=== PATIENT | male | born 1935 | race Caucasian/White ===

== ENCOUNTER 2017-05-30 07:19 | Observation (INO) | payer OTHER ==
[2017-05-30] VITALS (7 sets, daily range): BP systolic 140–151; BP diastolic 64–70; PULSE 40–49; RESP 20; TEMP 97.6; Ht 165.1 cm; Wt 74.4 kg
[~2017-05-30] VITALS: Ht 165.1 cm; Wt 74.4 kg
[~2017-05-30 07:19] MED LIST: ACET325T33 PO; AMLO-145 PO; ATOR20TA65 PO; DORZ10DR BOTH EYES; DOXA1TAB PO; ESOM40CA PO; HYDR-3498 PO; HYDR12.58 PO; KETO5DRO21 BOTH EYES; MAGN400O4 PO; PRD1OP5 BOTH EYES; TIMO5DRO30 BOTH EYES
[2017-05-30] MEDS ORDERED: morphine 4 MG/ML VIAL IV STA (08:05)
[2017-05-30] MEDS ORDERED: ONDANSETRON 4 MG INJ IV STA (08:05)
[2017-05-30] MEDS ORDERED: ASPIRIN 325 MG TAB PO STA (08:05)
[2017-05-30 08:28] LABS: BASOPHILS % 0.3 % (0.0-2.0); EOSINOPHILS # 0.1 10^3/ul (0.0-0.5); EOSINOPHILS % 1.4 % (0.0-7.0); HEMATOCRIT 39.3 % (42.0-52.0); HEMOGLOBIN 13.3 g/dl (14.0-18.0); LYMPHOCYTES % 28.4 % (15.0-51.0); MEAN CORPUSCULAR HEMOGLOBIN 32.8 pg (29.0-33.0); MEAN CORPUSCULAR HGB CONC 33.8 g/dl (32.0-37.0); MEAN CORPUSCULAR VOLUME 96.8 fl (82.0-101.0); MEAN PLATELET VOLUME 10.2 fl (7.4-10.4); MONOCYTE # 0.3 10^3/ul (0.3-0.9); MONOCYTES % 7.7 % (0.0-11.0); NEUTROPHIL # 2.2 10^3/ul (1.6-7.5); NEUTROPHILS % 61.9 % (39.0-77.0); PLATELET COUNT 119 10^3/UL (140-415); RED BLOOD COUNT 4.06 10^6/ul (4.70-6.10); RED CELL DISTRIBUTION WIDTH 12.8 % (11.5-14.5); WHITE BLOOD COUNT 3.5 10^3/ul (4.8-10.8)
[2017-05-30 08:43] LABS: INR 0.98; PARTIAL THROMBOPLASTIN TIME 26.8 Sec (25.0-35.0); PROTIME 13.1 Sec (11.9-14.9)
--- NOTE | 2017-05-30 08:45 | ERD ---
ER Documentation Chief Complaint Chief Complaint CHEST PAIN SINCE MONDAY HPI This is an 81-year-old male with a history of hypertension high cholesterol complains of substernal chest pain for 2 days. The pain is off and on described as a chest pressure with no radiation. He says he has no shortness of breath no nausea vomiting no palpitations. He says it does not happen when he walks. Patient has a history of CABG in the past. Patient is a very poor historian. Currently. He says his chest pain is very mild ROS All systems reviewed and are negative except as per history of present illness. Medications Home Meds Active Scripts Atorvastatin Calcium (Atorvastatin Calcium) 20 Mg Tablet, 20 MG PO HS, #30 TAB Prov:CHARLOTTE MARQUIS MD 02/06/16 Reported Medications Aspirin* (Aspirin* EC) 81 Mg Tablet., 81 MG PO DAILY, TAB 05/30/17 Prednisolone Acetate* (Pred Forte*) 5 Ml Susp, 1 DROP BOTH EYES QID, EA 02/04/16 Hydrochlorothiazide* (Hydrochlorothiazide*) 12.5 Mg Tablet, 12.5 MG PO DAILY, # 30 TAB 02/04/16 Doxazosin Mesylate* (Doxazosin Mesylate*) 1 Mg Tablet, 1 MG PO HS, TAB 02/04/16 Timolol Maleate* (Timoptic*) 0.5%-5ml Opht, 1 DROP BOTH EYES BID, #1 EA 02/04/16 Dorzolamide Hcl* (Dorzolamide Hcl*) 10 Ml Drops, 1 DROP BOTH EYES TID, #1 EA 02/04/16 Esomeprazole Mag Trihydrate (Nexium) 40 Mg Capsule.dr, 40 MG PO DAILY, CAP 01/27/15 Discontinued Reported Medications Ketorolac Tromethamine Oph (Ketorolac Tromethamine Oph) 0.5%-5 Ml Opht Drops, 1 DROP BOTH EYES QID, EA 02/04/16 Amlodipine Besylate* (Amlodipine Besylate*) 5 Mg Tablet, 5 MG PO DAILY, TAB 01/27/15 Discontinued Scripts Hydrocodone Bit-Acetaminophen (Hydrocodone Bit-APAP) 5-325MG Tablet, 1 TAB PO Q6H Y for PAIN LEVEL 4-6, #60 TAB Prov:CHARLOTTE MARQUIS MD 02/06/16 Magnesium Hydroxide* (Milk Of Magnesia*) 400 Mg/5 Ml Oral.susp, 30 ML PO BID for CONSTIPATION, #1 BOTTLE Prov:CHARLOTTE MARQUIS MD 02/06/16 Acetaminophen* (Tylenol*) 325 Mg Tablet, 650 MG PO Q6H Y for PAIN LEVEL 1-3 OR FEVER, #60 TAB Prov:CHARLOTTE MARQUIS MD 02/06/16 Allergies Allergies: Coded Allergies: No Known Allergy (Unverified , 02/04/16) PMhx/Soc History of Surgery: Yes (Open heart, GALLBLADDER SURGERY) Anesthesia Reaction: No Hx Neurological Disorder: No Hx Respiratory Disorders: No Hx Cardiac Disorders: Yes (TN, HTN) Hx Psychiatric Problems: No Hx Miscellaneous Medical Probl: Yes (HIGH CHOLESTEROL) Hx Alcohol Use: No Hx Substance Use: No Hx Tobacco Use: Yes Smoking Status: Light tobacco smoker FmHx Family History: No coronary disease Physical Exam Vitals Vital Signs Date Time Temp Pulse Resp B/P Pulse Ox O2 Delivery O2 Flow Rate FiO2 05/30/17 08:33 97.6 46 20 142/64 96 Nasal Cannula 2.0 05/30/17 08:33 Nasal Cannula 2 05/30/17 07:21 97.8 52 16 190/83 100 Physical Exam Const: Well-developed, well-nourished Head: Atraumatic, normocephalic Eyes: Normal Conjunctiva, PERRLA, EOMI, normal sclera, no nystagmus ENT: Normal External Ears, Nose and Mouth, moist mucus membranes. Neck: Full range of motion. No meningismus, no lymphadenopathy. Resp: Clear to auscultation bilaterally, no wheezing, rhonchi, rales Cardio: Bradycardia, no murmurs, S1 S2 present Abd: Soft, non tender x 4, non distended. Normal bowel sounds, no guarding or rebound, no pulsitile abdominal masses or bruits Skin: No petechiae or rashes, no ecchymosis , no maculopapular rash Back: No midline or flank tenderness Ext: No cyanosis, or edema, FROM x 4, normal inspection, neurovascularly intact x 4 Neur: Awake and alert, STR 5/5 x 4, sensation intact x 4, no focal findings, cerebellum intact Psych: Normal Mood and Affect Result Diagram: 05/30/17 0800 05/30/17 0800 Results 24 hrs Laboratory Tests Test 05/30/17 08:00 White Blood Count 3.510^3/ul Red Blood Count 4.0610^6/ul Hemoglobin 13.3g/dl Hematocrit 39.3% Mean Corpuscular Volume 96.8fl Mean Corpuscular Hemoglobin 32.8pg Mean Corpuscular Hemoglobin Concent 33.8g/dl Red Cell Distribution Width 12.8% Platelet Count 50621^3/UL Mean Platelet Volume 10.2fl Neutrophils % 61.9% Lymphocytes % 28.4% Monocytes % 7.7% Eosinophils % 1.4% Basophils % 0.3% Nucleated Red Blood Cells % 0.0/100WBC Neutrophils # 2.210^3/ul Lymphocytes # 1.010^3/ul Monocytes # 0.310^3/ul Eosinophils # 0.110^3/ul Basophils # 0.010^3/ul Nucleated Red Blood Cells # 0.010^3/ul Prothrombin Time 13.1Sec Prothrombin Time Ratio 1.0 INR International Normalized Ratio 0.98 Activated Partial Thromboplast Time 26.8Sec Sodium Level 141mmol/L Potassium Level 3.9mmol/L Chloride Level 107mmol/L Carbon Dioxide Level 24mmol/L Anion Gap 14 Blood Urea Nitrogen 18mg/dl Creatinine 0.93mg/dl Glucose Level 123mg/dl Calcium Level 8.8mg/dl Total Bilirubin 0.6mg/dl Direct Bilirubin 0.00mg/dl Indirect Bilirubin 0.6mg/dl Aspartate Amino Transf (AST/SGOT) 25IU/L Alanine Aminotransferase (ALT/SGPT) 39IU/L Alkaline Phosphatase 80IU/L Troponin I 0.046ng/ml Total Protein 6.9g/dl Albumin 3.6g/dl Globulin 3.30g/dl Albumin/Globulin Ratio 1.09 Current Medications Medications (Trade) Dose Ordered Sig/Se Route PRN Reason Start Time Stop Time Status Last Admin Dose Admin Aspirin (Aspirin) 325 mg ONCE STAT PO 05/30/17 08:05 05/30/17 08:06 DC 05/30/17 08:20 Morphine Sulfate (morphine) 4 mg ONCE STAT IV 05/30/17 08:05 05/30/17 08:06 DC 05/30/17 08:20 Ondansetron HCl (Zofran Inj) 4 mg ONCE STAT IV 05/30/17 08:05 05/30/17 08:06 DC 05/30/17 08:20 Procedures/MDM EKG: Rate/Rhythm: Sinus bradycardia heart rate 52 with first-degree AV block and nonspecific ST changes QRS, ST, QT: NORMAL MO, QRS, QT] Impression: Abnormal EKG PROCEDURE: XR Chest. CLINICAL INDICATION: Chest pain. TECHNIQUE: Single frontal view. COMPARISON: 02/04/2016. FINDINGS: The lungs are clear. The heart size is normal. There is calcification in the aorta consistent with atherosclerosis. There are sternal wires and mediastinal clips. There is no pleural effusion. There is no pneumothorax. IMPRESSION: 1. Atherosclerosis. 2. Previous median sternotomy. 3. Clear lungs. 4. Otherwise unremarkable chest radiograph. RPTAT: QQ .Tomasz Carrera MD, MD Date Time Electronically viewed and signed by .Tomasz Carrera MD, MD on 05/30/2017 08:44 .R/ CC: GENI ABRAMS DO Patient's symptoms are concerning for cardiac cause will require inpatient workup and continuous monitoring. Further w/u for ischemia, arrhythmia, PE or dissection will be deferred to the inpatient team. Accepting Care Team: Current data and ongoing care discussed. Time: Time of admission Primary Provider: [XOXOXO] Consulting: [XOXOXO] Outstanding Data: none Departure Diagnosis: Primary Impression: Chest pain Chest pain type: unspecified Qualified Code: R07.9 - Chest pain, unspecified type Condition: Stable GENI ABRAMS DO May 30, 2017 08:45
[2017-05-30 08:47] LABS: ALBUMIN 3.6 g/dl (3.3-4.9); ALBUMIN/GLOBULIN RATIO 1.09; BILIRUBIN,INDIRECT 0.6 mg/dl (0-1.1); BILIRUBIN,TOTAL 0.6 mg/dl (0.2-1.3); CALCIUM 8.8 mg/dl (8.4-10.2); CREATININE 0.93 mg/dl (0.61-1.24); POTASSIUM 3.9 mmol/L (3.5-5.1); TOTAL PROTEIN 6.9 g/dl (6.1-8.1)
[2017-05-30 08:58] LABS: TROPONIN-I 0.046 ng/ml (0.00-0.12)
[2017-05-30] MEDS ORDERED: ASPI-664 PO (09:19)
[2017-05-30] MEDS ORDERED: LOSA25TA5 PO (09:34)
[2017-05-30] MEDS ORDERED: METO-335 PO (09:34)
[2017-05-30] MEDS ORDERED: ATOR40TA68 PO (09:35)
[2017-05-30] MEDS ORDERED: SOD CHLORIDE 0.9% 1,000 ML IV SCH (10:56)
[2017-05-30] MEDS ORDERED: ONDANSETRON 4 MG INJ IV PRN (11:00)
[2017-05-30] MEDS ORDERED: ACETAMINOPHEN 325 MG TAB PO PRN (11:00)
--- NOTE | 2017-05-30 12:57 | HP ---
Date/Time of Note Date/Time of Note DATE: 05/30/17 TIME: 12:51 Assessment/Plan VTE Prophylaxis VTE Prophylaxis Intervention: LMWH Lines/Catheters IV Catheter Type (from Nrs): Saline Lock Assessment/Plan Assessment/Plan 81 yo M with 4 day hx of chest pain managed as follows: 1. Chest pain r/o ACS 2 Sinus Bradycardia likely 2/2 meds 3. History of coronary artery disease status post CABG 4. Hypertension with suboptimal control on arrival 5. History of dyslipidemia 6. Chronic glaucoma stable Plan: Telemetry admission, trend cardiac enzymes, 2d echo if none recently and possible cardiology consult for stress test. oxygen and nitroglycerin therapy as needed. Daily aspirin if no allergy or bleeding risk. Get lipid profile, magnesium and TSH levels in am. HPI/ROS Admit Date/Time Admit Date/Time May 30, 2017 Hx of Present Illness This is an 81-year-old male who presents to the emergency room today because of Substernal chest pain that has been on and off for the last 2-3 days. Pain is said to be more like a pressure-like sensation. Of note is that patient is not very able to give a detailed history. Apparently has had a history of CABG in the past. He is currently chest pain-free. He is being admitted for chest pain workup. ROS 12 point review if systems was done and pertinent findings are as noted. PMH/Family/Social Past Medical History 1. Hypertension 2. Dyslipidemia 3. CAD Status post CABG in the past 4. Glaucoma . Past Surgical History * CABG Past Surgical Hx: coronary bypass surgery, endoscopy, other Family History Significant Family History: no pertinent family hx Social History Alcohol Use: none Smoking Status: Light tobacco smoker Drug Use: none Exam/Review of Systems Vital Signs Vitals VS - Last 72 Hours, by Label Date Time Temp Pulse Resp B/P Pulse Ox O2 Delivery O2 Flow Rate FiO2 05/30/17 12:31 97.6 39 18 135/86 98 Nasal Cannula 2.0 05/30/17 08:33 97.6 46 20 142/64 96 Nasal Cannula 2.0 05/30/17 08:33 Nasal Cannula 2 05/30/17 07:21 97.8 52 16 190/83 100 Vital Signs Date Time Temp Pulse Resp B/P Pulse Ox O2 Delivery O2 Flow Rate FiO2 05/30/17 12:31 97.6 39 18 135/86 98 Nasal Cannula 2.0 Exam Exam Constitutional: alert, oriented Head: atraumatic, normocephalic Neck: non-tender, supple Respiratory: clear to auscultation Cardiovascular: regular rate and rhythm Gastrointestinal: S/ NT / ND / +BS Extremities: no edema, good radial pulses Labs Result Diagram: 05/30/17 0800 05/30/17 0800 Medications Medications Current Medications Sodium Chloride (NS) 1,000 ml @ 80 mls/hr [id number] IV ; Start 05/30/17 at 10:56 ; Stop 05/30/17 at 23:25 Procedures Procedures Laboratory Tests Test 05/30/17 08:00 White Blood Count 3.510^3/ul Red Blood Count 4.0610^6/ul Hemoglobin 13.3g/dl Hematocrit 39.3% Mean Corpuscular Volume 96.8fl Mean Corpuscular Hemoglobin 32.8pg Mean Corpuscular Hemoglobin Concent 33.8g/dl Red Cell Distribution Width 12.8% Platelet Count 97053^3/UL Mean Platelet Volume 10.2fl Neutrophils % 61.9% Lymphocytes % 28.4% Monocytes % 7.7% Eosinophils % 1.4% Basophils % 0.3% Nucleated Red Blood Cells % 0.0/100WBC Neutrophils # 2.210^3/ul Lymphocytes # 1.010^3/ul Monocytes # 0.310^3/ul Eosinophils # 0.110^3/ul Basophils # 0.010^3/ul Nucleated Red Blood Cells # 0.010^3/ul Prothrombin Time 13.1Sec Prothrombin Time Ratio 1.0 INR International Normalized Ratio 0.98 Activated Partial Thromboplast Time 26.8Sec Sodium Level 141mmol/L Potassium Level 3.9mmol/L Chloride Level 107mmol/L Carbon Dioxide Level 24mmol/L Anion Gap 14 Blood Urea Nitrogen 18mg/dl Creatinine 0.93mg/dl Glucose Level 123mg/dl Calcium Level 8.8mg/dl Total Bilirubin 0.6mg/dl Direct Bilirubin 0.00mg/dl Indirect Bilirubin 0.6mg/dl Aspartate Amino Transf (AST/SGOT) 25IU/L Alanine Aminotransferase (ALT/SGPT) 39IU/L Alkaline Phosphatase 80IU/L Troponin I 0.046ng/ml Total Protein 6.9g/dl Albumin 3.6g/dl Globulin 3.30g/dl Albumin/Globulin Ratio 1.09 Current Medications Medications (Trade) Dose Ordered Sig/Se Route PRN Reason Start Time Stop Time Status Last Admin Dose Admin Aspirin (Aspirin) 325 mg ONCE STAT PO 05/30/17 08:05 05/30/17 08:06 DC 05/30/17 08:20 325 MG Morphine Sulfate (morphine) 4 mg ONCE STAT IV 05/30/17 08:05 05/30/17 08:06 DC 05/30/17 08:20 4 MG Ondansetron HCl 4 mg 4 mg ONCE STAT IV 05/30/17 08:05 05/30/17 08:06 DC 05/30/17 08:20 4 MG Sodium Chloride (NS) 1,000 ml @ 80 mls/hr [id number] IV 05/30/17 10:56 05/30/17 23:25 Ondansetron HCl (Zofran Inj) 4 mg ER BRIDGE PRN IV NAUSEA AND/OR VOMITING 05/30/17 11:00 05/31/17 10:59 Acetaminophen (Tylenol Tab) 650 mg ER BRIDGE PRN PO MILD PAIN/FEVER 05/30/17 11:00 05/31/17 10:59 PROCEDURE: XR Chest. CLINICAL INDICATION: Chest pain. TECHNIQUE: Single frontal view. COMPARISON: 02/04/2016. FINDINGS: The lungs are clear. The heart size is normal. There is calcification in the aorta consistent with atherosclerosis. There are sternal wires and mediastinal clips. There is no pleural effusion. There is no pneumothorax. IMPRESSION: 1. Atherosclerosis. 2. Previous median sternotomy. 3. Clear lungs. 4. Otherwise unremarkable chest radiograph. RPTAT: QQ .Tomasz Carrera MD, MD Date Time Electronically viewed and signed by .Tomasz Carrera MD, MD on 05/30/2017 08:44 .R/ CC: GENI ABRAMS DO I reviewed EKG Rate: 52 Rhythm: sinus blair with 1st deg AV block Note: No ST elevation or depressions noted concerning for acute ischemic event. MELY SCHULTZ May 30, 2017 12:56
[2017-05-30] MEDS: PREDNISOLONE ACET 1% 5 ML OPH BOTH EYES SCH ×3 (14:28→21:00)
[2017-05-30] MEDS: DORZOLAMIDE 2% 10 ML OPH BOTH EYES SCH ×2 (14:28→21:00)
[2017-05-30 15:47] LABS: MAGNESIUM 1.8 mg/dl (1.7-2.5); PHOSPHORUS 3.1 mg/dl (2.5-4.9)
[2017-05-30 15:57] LABS: TROPONIN-I 0.028 ng/ml (0.00-0.12)
[2017-05-30 16:06] LABS: CK-MB 0.8 ng/ml (0.0-2.4)
--- NOTE | 2017-05-30 18:41 | CONS ---
Date/Time of Note Date/Time of Note DATE: 05/30/17 TIME: 18:37 Assessment/Plan Assessment/Plan Chief Complaint/Hosp Course 1) Atypical chest pain 2) marked sinus bradycardia suggestive of SSS without syncope 3) HTN 4) HLP 5) h/o preserved LV function 6) CABG Problems: Additional Assessment/Plan 1) Avoid av haleigh blockers 2) troponins 3) EKG 4) echo 5) will consider stress testing however chest pain may be caused by marked sinusbrady seconday to beta jarret Consultation Date/Type/Reason Admit Date/Time May 30, 2017 Date of Consultation: May 30, 2017 Type of Consultation: cv Hx of Present Illness admitted with chest pain, mid chest, no radiation, localized, not exertional, now resolved, currently no symtoms, no chest pain, no sob, no palpitations, no dizziness or syncope or near syncope, found to have sinusbrady in the 30s ENT: no complaints Respiratory: no complaints Cardiovascular: no complaints Gastrointestinal: no complaints Musculoskeletal: no complaints Skin: no complaints Neurologic: no complaints Endocrine: no complaints Past Medical History Medical History: coronary artery disease, high cholesterol, hypertension Past Surgical History Past Surgical Hx: coronary bypass surgery, endoscopy, other Family History Significant Family History: hypertension Social History Alcohol Use: none Smoking Status: Light tobacco smoker Drug Use: none Exam/Review of Systems Vital Signs Vitals Vital Signs Date Time Temp Pulse Resp B/P Pulse Ox O2 Delivery O2 Flow Rate FiO2 05/30/17 16:00 45 05/30/17 15:07 97.7 140/64 98 Nasal Cannula 2.0 05/30/17 12:31 18 Exam Constitutional: alert, oriented Head: atraumatic, normocephalic Neck: supple Respiratory: clear to auscultation Cardiovascular: regular rate and rhythm Gastrointestinal: soft Musculoskeletal: nl extremities to inspection Extremities: normal pulses Results Result Diagram: 05/30/17 0800 05/30/17 0800 Results 24 hrs Laboratory Tests Test 05/30/17 08:00 05/30/17 15:14 White Blood Count 3.5 #L Red Blood Count 4.06 L Hemoglobin 13.3 L Hematocrit 39.3 L Mean Corpuscular Volume 96.8 Mean Corpuscular Hemoglobin 32.8 Mean Corpuscular Hemoglobin Concent 33.8 Red Cell Distribution Width 12.8 Platelet Count 119 L Mean Platelet Volume 10.2 # Neutrophils % 61.9 Lymphocytes % 28.4 Monocytes % 7.7 Eosinophils % 1.4 Basophils % 0.3 Nucleated Red Blood Cells % 0.0 Neutrophils # 2.2 Lymphocytes # 1.0 Monocytes # 0.3 Eosinophils # 0.1 Basophils # 0.0 Nucleated Red Blood Cells # 0.0 Prothrombin Time 13.1 Prothrombin Time Ratio 1.0 INR International Normalized Ratio 0.98 Activated Partial Thromboplast Time 26.8 Sodium Level 141 Potassium Level 3.9 Chloride Level 107 Carbon Dioxide Level 24 Anion Gap 14 Blood Urea Nitrogen 18 Creatinine 0.93 Glucose Level 123 Calcium Level 8.8 Total Bilirubin 0.6 Direct Bilirubin 0.00 Indirect Bilirubin 0.6 Aspartate Amino Transf (AST/SGOT) 25 Alanine Aminotransferase (ALT/SGPT) 39 Alkaline Phosphatase 80 Troponin I 0.046 0.028 Total Protein 6.9 Albumin 3.6 Globulin 3.30 H Albumin/Globulin Ratio 1.09 Phosphorus Level 3.1 Magnesium Level 1.8 Creatine Kinase 51 Creatine Kinase Index 1.6 Creatinine Kinase MB (Mass) 0.80 Medications Medications Current Medications Sodium Chloride (NS) 1,000 ml @ 80 mls/hr [id number] IV ; Start 05/30/17 at 10:56 ; Stop 05/30/17 at 23:25 Aspirin (Halfprin) 81 mg DAILY PO ; Start 05/31/17 at 09:00 Atorvastatin Calcium (Lipitor) 40 mg QHS PO ; Start 05/30/17 at 21:00 Dorzolamide HCl (Trusopt) 1 drop TID BOTH EYES Last administered on 05/30/17t 14:28; Admin Dose 1 DROP; Start 05/30/17 at 13:00 Doxazosin Mesylate (Cardura) 1 mg HS PO ; Start 05/30/17 at 21:00 Hydrochlorothiazide (Hydrochlorothiazide) 12.5 mg DAILY PO ; Start 05/31/17 at 09:00 Losartan Potassium (Cozaar) 25 mg DAILY PO ; Start 05/31/17 at 09:00 Prednisolone Acetate (Pred-Forte 1%) 1 drop QID BOTH EYES Last administered on 05/30/17t 17:47; Admin Dose 1 DROP; Start 05/30/17 at 13:00 Timolol Maleate (Timoptic 0.5%) 1 drop BID BOTH EYES ; Start 05/30/17 at 21:00 Pantoprazole (Protonix Tab) 40 mg DAILY PO ; Start 05/31/17 at 09:00 RACQUEL MCGREGOR MD May 30, 2017 18:41
[2017-05-30 20:34] LABS: TROPONIN-I 0.046 ng/ml (0.00-0.12)
[2017-05-30 20:35] LABS: CK-MB 0.88 ng/ml (0.0-2.4)
[2017-05-30] MEDS ORDERED: ATORVASTATIN 40 MG TAB PO SCH (21:00)
[2017-05-30] MEDS ORDERED: DOXAZOSIN 1 MG TAB PO SCH (21:00)
[2017-05-30] MEDS: TIMOLOL 0.5% 5 ML OPH BOTH EYES SCH (21:17)
[2017-05-31] VITALS (7 sets, daily range): BP systolic 136–168; BP diastolic 61–77; PULSE 40–45; RESP 16–19
[2017-05-31] MEDS ORDERED: GLUCAGON 1 MG INJ IV ONE (04:00)
--- NOTE | 2017-05-31 07:22 | RADRPT ---
Vent Rate: 40 bpm RR Interval: 0 msec MA Interval: 250 msec QRS Duration: 78 msec QT Interval: 464 msec QTC Interval: 378 msec P-R-T [place]: 47 - 32 - 52 degrees Marked sinus bradycardia with sinus arrhythmia with 1st degree AV block Nonspecific T wave abnormality Abnormal ECG Electronically Signed By: Puneet Gutiérrez [id number]
[2017-05-31] MEDS: TIMOLOL 0.5% 5 ML OPH BOTH EYES SCH (09:00)
[2017-05-31] MEDS: PREDNISOLONE ACET 1% 5 ML OPH BOTH EYES SCH ×2 (09:00→13:23)
[2017-05-31] MEDS: DORZOLAMIDE 2% 10 ML OPH BOTH EYES SCH ×2 (09:00→13:23)
[2017-05-31] MEDS ORDERED: LOSARTAN 25 MG TAB PO SCH (09:00)
[2017-05-31] MEDS ORDERED: HYDROCHLOROTHIAZIDE 12.5 MG CAP PO SCH (09:00)
[2017-05-31] MEDS ORDERED: ASPIRIN (EC) 81 MG TAB PO SCH (09:00)
[2017-05-31] MEDS ORDERED: PANTOPRAZOLE (EC) 40 MG TAB PO SCH (09:00)
--- NOTE | 2017-05-31 09:01 | PN ---
Date/Time of Note Date/Time of Note DATE: 05/31/17 TIME: 08:57 Assessment/Plan VTE Prophylaxis VTE Prophylaxis Intervention: LMWH Lines/Catheters IV Catheter Type (from Nrs): Saline Lock Urinary Cath still in place: No Assessment/Plan Assessment/Plan 81 yo M with 4 day hx of chest pain managed as follows: 1. Chest pain ACS has been ruled out 2 Sinus Bradycardia likely 2/2 meds r/o SSS 3. History of coronary artery disease status post CABG 4. Hypertension with improving 5. History of dyslipidemia 6. Chronic glaucoma stable Plan: Continue current care and await cardiology recs Subjective 24 Hr Interval Summary Constitutional: no complaints Exam/Review of Systems Vital Signs Vitals Vital Signs Date Time Temp Pulse Resp B/P Pulse Ox O2 Delivery O2 Flow Rate FiO2 05/31/17 08:02 41 05/31/17 07:55 98.0 16 136/61 96 05/30/17 15:07 Nasal Cannula 2.0 Intake and Output 05/30/17 05/30/17 05/31/17 15:00 23:00 07:00 Intake Total 240 ml Balance 240 ml Exam Constitutional: alert, oriented Head: atraumatic, normocephalic Neck: non-tender, supple Respiratory: clear to auscultation Cardiovascular: regular rate and rhythm Gastrointestinal: S/ NT / ND / +BS Extremities: no edema, good radial pulses Results Result Diagram: 05/30/17 0800 05/30/17 0800 Results 24 hrs Laboratory Tests Test 05/30/17 15:14 05/30/17 20:00 Phosphorus Level 3.1 Magnesium Level 1.8 Creatine Kinase 51 75 Creatine Kinase Index 1.6 1.2 Creatinine Kinase MB (Mass) 0.80 0.88 Troponin I 0.028 0.046 Medications Medications Current Medications Aspirin (Halfprin) 81 mg DAILY PO ; Start 05/31/17 at 09:00 Atorvastatin Calcium (Lipitor) 40 mg QHS PO Last administered on 05/30/17 21: 17; Admin Dose 40 MG; Start 05/30/17 at 21:00 Dorzolamide HCl (Trusopt) 1 drop TID BOTH EYES Last administered on 05/30/17 14:28; Admin Dose 1 DROP; Start 05/30/17 at 13:00 Doxazosin Mesylate (Cardura) 1 mg HS PO Last administered on 05/31/17 00:24; Admin Dose 1 MG; Start 05/30/17 at 21:00 Hydrochlorothiazide (Hydrochlorothiazide) 12.5 mg DAILY PO ; Start 05/31/17 at 09:00 Losartan Potassium (Cozaar) 25 mg DAILY PO ; Start 05/31/17 at 09:00 Prednisolone Acetate (Pred-Forte 1%) 1 drop QID BOTH EYES Last administered on 05/30/17 17:47; Admin Dose 1 DROP; Start 05/30/17 at 13:00 Timolol Maleate (Timoptic 0.5%) 1 drop BID BOTH EYES Last administered on 05/30 21:17; Admin Dose 1 DROP; Start 05/30/17 at 21:00 Pantoprazole (Protonix Tab) 40 mg DAILY PO ; Start 05/31/17 at 09:00 MELY SCHULTZ May 31, 2017 09:01
[2017-05-31 09:18] LABS: BASOPHILS % 0.5 % (0.0-2.0); EOSINOPHILS # 0.1 10^3/ul (0.0-0.5); EOSINOPHILS % 1.2 % (0.0-7.0); HEMATOCRIT 37.7 % (42.0-52.0); HEMOGLOBIN 12.9 g/dl (14.0-18.0); LYMPHOCYTES # 1.2 10^3/ul (0.8-2.9); LYMPHOCYTES % 21.6 % (15.0-51.0); MEAN CORPUSCULAR HEMOGLOBIN 33.1 pg (29.0-33.0); MEAN CORPUSCULAR HGB CONC 34.2 g/dl (32.0-37.0); MEAN CORPUSCULAR VOLUME 96.7 fl (82.0-101.0); MEAN PLATELET VOLUME 10.7 fl (7.4-10.4); MONOCYTE # 0.4 10^3/ul (0.3-0.9); MONOCYTES % 7.4 % (0.0-11.0); NEUTROPHIL # 3.9 10^3/ul (1.6-7.5); NEUTROPHILS % 68.9 % (39.0-77.0); PLATELET COUNT 135 10^3/UL (140-415); POSITIVE DIFF @See below; RED CELL DISTRIBUTION WIDTH 12.7 % (11.5-14.5); WHITE BLOOD COUNT 5.7 10^3/ul (4.8-10.8)
[2017-05-31 09:59] LABS: CALCIUM 9.1 mg/dl (8.4-10.2); CHOL/HDL RATIO 3.3 RATIO; CREATININE 1.01 mg/dl (0.61-1.24); POTASSIUM 4.4 mmol/L (3.5-5.1)
[2017-05-31 10:24] LABS: THYROID STIMULATING HORMONE 2.56 MIU/L (0.465-4.680)
--- NOTE | 2017-05-31 11:36 | RADRPT ---
Echocardiogram Report Patient Name: CHRISTIN KENYON Gender: Male Date: 1935 Study Date: 30-May-2017 Bag Presser: Charlene [facility] Location: [id number] Ref. Physician: MELY SCHULTZ Quality: Adequate Procedures: Transthoracic echocardiogram with complete 2D, M-Mode, and doppler examination. Indications: Chest Pain. 2D/M Mode Doppler Measurement Value Normal Ranges Measurement Value Normal Ranges LVIDd 2D 4.5 3.5 - 5.6 cm AV Peak Kd 1.8 m/sec LVIDs 2D 3.0 2.1 - 4.1 cm AV Peak PG 12.0 mmHg FS 2D 32.2 % LVOT Peak Kd 0.8 m/sec LVPWd 2D 1.3 0.6 - 1.1 cm LVOT Peak PG 3.0 mmHg IVSd 2D 1.6 0.6 - 1.1 cm MV E Peak Kd 0.9 m/sec IVS/LVPW 2D 1.3 MV A Peak Kd 0.7 m/sec AoR Diam 2D 3.0 2.0 - 3.7 cm MV E/A 1.3 LA/Ao 2D 1 0 - 1 MV Decel Time 320 msec EDV 2D 91.1 cm3 MV E/A 1.3 ESV 2D 28.4 cm3 TR Peak Kd 3.0 m/sec LA Dimen 2D 4.4 2.3 - 4.0 cm TR Peak PG 36.0 mmHg RVSP 39.0 mmHg Findings Left Ventricle: Normal left ventricular systolic function. Normal left ventricular cavity size. Sigmoid septum. Ejection fraction is visually estimated at 55 %. Tissue Doppler/Mitral Doppler indices are consistent with impaired relaxation (Stage I diastolic dysfunction). Right Ventricle: Normal right ventricular size. Normal right ventricular systolic function. Left Atrium: There is mild enlargement of left atrium. Right Atrium: The right atrium is normal in size. Mitral Valve: Mild mitral leaflet calcification. Mild mitral annular calcification. Mild mitral valve regurgitation. Aortic Valve: No significant aortic stenosis or insufficiency. Aortic cusps appear mildly calcified. Trace aortic valve regurgitation. Tricuspid Valve: Normal appearance of the tricuspid valve. Estimated peak PA systolic pressure 39 mmHg. There is mild tricuspid regurgitation. Pulmonic Valve: Pulmonic valve not well visualized. There is trace pulmonic regurgitation. Pericardium: Normal pericardium with no significant pericardial effusion. Aorta: Normal aortic root. IVC: Normal size and normal respiratory collapse consistent with normal right atrial pressure. Conclusions Normal left ventricular systolic function. Normal left ventricular cavity size. Sigmoid septum. Ejection fraction is visually estimated at 55 %. Tissue Doppler/Mitral Doppler indices are consistent with impaired relaxation (Stage I diastolic dysfunction). Normal right ventricular size. Normal right ventricular systolic function. There is mild enlargement of left atrium. The right atrium is normal in size. Mild mitral valve regurgitation. No significant aortic stenosis or insufficiency. Trace aortic valve regurgitation. Estimated peak PA systolic pressure 39 mmHg. There is mild tricuspid regurgitation. Normal pericardium with no significant pericardial effusion. Electronically Signed By: Ray Restrepo 31-May-2017 11:36:11 -0800 Patient Name: CHRISTIN KENYON Study Date: 30-May-[id number]
[2017-05-31] MEDS ORDERED: LOSARTAN 25 MG TAB PO STA (12:29)
--- NOTE | 2017-05-31 12:29 | CONS ---
Date/Time of Note Date/Time of Note DATE: 05/31/17 TIME: 12:27 Assessment/Plan Assessment/Plan Additional Assessment/Plan Chest pain, resolved Sinus bradycardia, asymptomatic CAD with history of CABG Preserved ejection fraction Hypertension -Patient denies further chest discomfort and when asked regarding his symptoms, he complained of an itching-like sensation in the morning in his mid chest which resolved throughout the day. Symptoms are nonexertional. Patient noted to have sinus bradycardia on telemetry lowest being 40 bpm. Patient denies any dizziness or lightheadedness. I did have the patient walk a few laps on the floor and heart rate went up to the mid 50s and patient remained asymptomatic. Patient has been off his beta-jarret over the past few weeks secondary to bradycardia. Recommended to stay off AV haleigh blocking agents. Blood pressure on the higher end, would increase dose of Cozaar. Otherwise continue aspirin and statin therapy if no contraindication. No further inpatient cardiac workup needed at the current time. Consultation Date/Type/Reason Admit Date/Time May 30, 2017 at 10:57 Initial Consult Date 05/30/17 Type of Consultation: cv 24 HR Interval Summary Free Text/Dictation Patient denies any chest pain, shortness of breath, palpitations or dizziness at rest or with ambulation. Overall feeling better. Exam/Review of Systems Vital Signs Vitals Vital Signs Date Time Temp Pulse Resp B/P Pulse Ox O2 Delivery O2 Flow Rate FiO2 05/31/17 11:53 97.8 46 16 168/77 93 05/30/17 15:07 Nasal Cannula 2.0 Intake and Output 05/30/17 05/30/17 05/31/17 15:00 23:00 07:00 Intake Total 240 ml Balance 240 ml Exam No apparent distress Constitutional: alert, oriented Head: normocephalic Neck: supple Respiratory: clear to auscultation, normal air movement Cardiovascular: other (S1-S2 heard), regular rate and rhythm, systolic murmur Gastrointestinal: bowel sounds, non-tender, soft Extremities: other (No edema) Results Result Diagram: 05/31/17 0708 05/31/17 0709 Results 24 hrs Laboratory Tests Test 05/30/17 15:14 05/30/17 20:00 05/31/17 07:08 05/31/17 07:09 Phosphorus Level 3.1 Magnesium Level 1.8 Creatine Kinase 51 75 Creatine Kinase Index 1.6 1.2 Creatinine Kinase MB (Mass) 0.80 0.88 Troponin I 0.028 0.046 White Blood Count 5.7 # Red Blood Count 3.90 L Hemoglobin 12.9 L Hematocrit 37.7 L Mean Corpuscular Volume 96.7 Mean Corpuscular Hemoglobin 33.1 H Mean Corpuscular Hemoglobin Concent 34.2 Red Cell Distribution Width 12.7 Platelet Count 135 L Mean Platelet Volume 10.7 H Neutrophils % 68.9 Lymphocytes % 21.6 Monocytes % 7.4 Eosinophils % 1.2 Basophils % 0.5 Nucleated Red Blood Cells % 0.0 Neutrophils # 3.9 Lymphocytes # 1.2 Monocytes # 0.4 Eosinophils # 0.1 Basophils # 0.0 Nucleated Red Blood Cells # 0.0 Hemoglobin A1c 5.5 Sodium Level 141 Potassium Level 4.4 Chloride Level 107 Carbon Dioxide Level 25 Anion Gap 13 Blood Urea Nitrogen 20 Creatinine 1.01 Glucose Level 84 Calcium Level 9.1 Triglycerides Level 71 Cholesterol Level 110 LDL Cholesterol, Calculated 63 HDL Cholesterol 33 Cholesterol/HDL Ratio 3.3 Thyroid Stimulating Hormone (TSH) 2.560 Medications Medications Current Medications Aspirin (Halfprin) 81 mg DAILY PO Last administered on 05/31/17 08:59; Admin Dose 81 MG; Start 05/31/17 at 09:00 Atorvastatin Calcium (Lipitor) 40 mg QHS PO Last administered on 05/30/17 21: 17; Admin Dose 40 MG; Start 05/30/17 at 21:00 Dorzolamide HCl (Trusopt) 1 drop TID BOTH EYES Last administered on 05/31/17 09:00; Admin Dose 1 DROP; Start 05/30/17 at 13:00 Doxazosin Mesylate (Cardura) 1 mg HS PO Last administered on 05/31/17 00:24; Admin Dose 1 MG; Start 05/30/17 at 21:00 Hydrochlorothiazide (Hydrochlorothiazide) 12.5 mg DAILY PO Last administered on 05/31/17 09:00; Admin Dose 12.5 MG; Start 05/31/17 at 09:00 Losartan Potassium (Cozaar) 25 mg DAILY PO Last administered on 05/31/17 08: 59; Admin Dose 25 MG; Start 05/31/17 at 09:00 Prednisolone Acetate (Pred-Forte 1%) 1 drop QID BOTH EYES Last administered on 05/31/17 09:00; Admin Dose 1 DROP; Start 05/30/17 at 13:00 Timolol Maleate (Timoptic 0.5%) 1 drop BID BOTH EYES Last administered on 05/31 09:00; Admin Dose 1 DROP; Start 05/30/17 at 21:00 Pantoprazole (Protonix Tab) 40 mg DAILY PO Last administered on 05/31/17 08: 59; Admin Dose 40 MG; Start 05/31/17 at 09:00 Ray eRstrepo DO May 31, 2017 12:29
[2017-05-31] MEDS ORDERED: LOSA50TA2 PO (13:02)
--- NOTE | 2017-05-31 13:05 | DS ---
Date/Time of Note Date/Time of Note DATE: 05/31/17 TIME: 13:01 Discharge Summary Admission/Discharge Info Admit Date/Time May 30, 2017 at 10:57 Discharge Date/Time Discharge Diagnosis 81 yo M with 4 day hx of chest pain managed as follows: 1. Chest pain ACS has been ruled out: resolved 2 Asymptomatic Sinus Bradycardia likely 2/2 meds : Avoid AV haleigh blocking agents 3. History of coronary artery disease status post CABG 4. Hypertension with improved control 5. History of dyslipidemia 6. Chronic glaucoma stable . Patient Condition: Stable Consults Cardiology: Lauro . Hx of Present Illness This is an 81-year-old male who presents to the emergency room today because of Substernal chest pain that has been on and off for the last 2-3 days. Pain is said to be more like a pressure-like sensation. Of note is that patient is not very able to give a detailed history. Apparently has had a history of CABG in the past. He is currently chest pain-free. He is being admitted for chest pain workup. Hospital Course 81-year-old pleasant male who was admitted for chest pain and pressure, admitted for ACS rule out. He was noted to be significantly bradycardic inpatient, seen by cardiology multiple times, and recommendation was to stay off AV haleigh blocking agents. Based on his metoprolol is discontinued and losartan was increased to further help blood pressure control. Patient desirous of discharge, has been cleared by cardiology. Is recommended to follow -up with primary care doctor within 1-2 weeks to ensure continued resolution of symptoms and stabilization of blood pressure and heart rate. Patient and has verbalized understanding. . Home Meds Reported Medications Atorvastatin* (Atorvastatin*) 40 Mg Tablet, 40 MG PO QHS, #30 TAB 05/30/17 Losartan Potassium* (Losartan Potassium*) 25 Mg Tablet, 25 MG PO DAILY, TAB 05/30/17 Metoprolol Succinate* (Toprol XL*) 25 Mg Tab.sr.24h, 25 MG PO DAILY, #30 TAB 05/30/17 Aspirin* (Aspirin* EC) 81 Mg Tablet.dr, 81 MG PO DAILY, TAB 05/30/17 Prednisolone Acetate* (Pred Forte*) 5 Ml Susp, 1 DROP BOTH EYES QID, EA 02/04/16 Hydrochlorothiazide* (Hydrochlorothiazide*) 12.5 Mg Tablet, 12.5 MG PO DAILY, # 30 TAB 02/04/16 Doxazosin Mesylate* (Doxazosin Mesylate*) 1 Mg Tablet, 1 MG PO HS, TAB 02/04/16 Timolol Maleate* (Timoptic*) 0.5%-5ml Opht, 1 DROP BOTH EYES BID, #1 EA 02/04/16 Dorzolamide Hcl* (Dorzolamide Hcl*) 10 Ml Drops, 1 DROP BOTH EYES TID, #1 EA 02/04/16 Esomeprazole Mag Trihydrate (Nexium) 40 Mg Capsule.dr, 40 MG PO DAILY, CAP 01/27/15 Discontinued Reported Medications Ketorolac Tromethamine Oph (Ketorolac Tromethamine Oph) 0.5%-5 Ml Opht Drops, 1 DROP BOTH EYES QID, EA 02/04/16 Amlodipine Besylate* (Amlodipine Besylate*) 5 Mg Tablet, 5 MG PO DAILY, TAB 01/27/15 Discontinued Scripts Hydrocodone Bit-Acetaminophen (Hydrocodone Bit-APAP) 5-325MG Tablet, 1 TAB PO Q6H Y for PAIN LEVEL 4-6, #60 TAB Prov:CHARLOTTE MARQUIS MD 02/06/16 Magnesium Hydroxide* (Milk Of Magnesia*) 400 Mg/5 Ml Oral.susp, 30 ML PO BID for CONSTIPATION, #1 BOTTLE Prov:CHARLOTTE MARQUIS MD 02/06/16 Acetaminophen* (Tylenol*) 325 Mg Tablet, 650 MG PO Q6H Y for PAIN LEVEL 1-3 OR FEVER, #60 TAB Prov:CHARLOTTE MARQUIS MD 02/06/16 Atorvastatin Calcium (Atorvastatin Calcium) 20 Mg Tablet, 20 MG PO HS, #30 TAB Prov:CHARLOTTE MARQUIS MD 02/06/16 Follow-up Plan Patient will follow up with primary care doctor within 1-2 weeks to continue to ensure continued resolution of symptoms. Encouraged to avoid AV haleigh blocking drugs. Names of, drugs written out. . Primary Care Provider Not On Staff Doctor Time spent on discharge: > 30 minutes Pending Labs Laboratory Tests Test 05/30/17 15:14 05/30/17 20:00 05/31/17 07:08 05/31/17 07:09 Phosphorus Level 3.1mg/dl (2.5-4.9) Magnesium Level 1.8mg/dl (1.7-2.5) Creatine Kinase 51IU/L (23-200) 75IU/L (23-200) Creatine Kinase Index 1.6 1.2 Creatinine Kinase MB (Mass) 0.80ng/ml (0.0-2.4) 0.88ng/ml (0.0-2.4) Troponin I 0.028ng/ml (0.00-0.12) 0.046ng/ml (0.00-0.12) White Blood Count 5.710^3/ul (4.8-10.8) Red Blood Count 3.9010^6/ul (4.70-6.10) Hemoglobin 12.9g/dl (14.0-18.0) Hematocrit 37.7% (42.0-52.0) Mean Corpuscular Volume 96.7fl (82.0-101.0) Mean Corpuscular Hemoglobin 33.1pg (29.0-33.0) Mean Corpuscular Hemoglobin Concent 34.2g/dl (32.0-37.0) Red Cell Distribution Width 12.7% (11.5-14.5) Platelet Count 09172^3/UL (140-415) Mean Platelet Volume 10.7fl (7.4-10.4) Neutrophils % 68.9% (39.0-77.0) Lymphocytes % 21.6% (15.0-51.0) Monocytes % 7.4% (0.0-11.0) Eosinophils % 1.2% (0.0-7.0) Basophils % 0.5% (0.0-2.0) Nucleated Red Blood Cells % 0.0/100WBC (0.0-0.0) Neutrophils # 3.910^3/ul (1.6-7.5) Lymphocytes # 1.210^3/ul (0.8-2.9) Monocytes # 0.410^3/ul (0.3-0.9) Eosinophils # 0.110^3/ul (0.0-0.5) Basophils # 0.010^3/ul (0.0-0.1) Nucleated Red Blood Cells # 0.010^3/ul (0.0-0.0) Hemoglobin A1c 5.5% (0-5.9) Sodium Level 141mmol/L (135-144) Potassium Level 4.4mmol/L (3.5-5.1) Chloride Level 107mmol/L (97-110) Carbon Dioxide Level 25mmol/L (21-31) Anion Gap 13 (8-16) Blood Urea Nitrogen 20mg/dl (7-20) Creatinine 1.01mg/dl (0.61-1.24) Glucose Level 84mg/dl (70-220) Calcium Level 9.1mg/dl (8.4-10.2) Triglycerides Level 71mg/dl (0-149) Cholesterol Level 110mg/dl (100-200) LDL Cholesterol, Calculated 63mg/dl HDL Cholesterol 33mg/dl (31-75) Cholesterol/HDL Ratio 3.3RATIO Thyroid Stimulating Hormone (TSH) 2.560MIU/L (0.465-4.680) MELY SCHULTZ May 31, 2017 13:05
--- NOTE | 2017-05-31 13:09 | PDOCDIS ---
Discharge Instructions DIAGNOSIS Discharge Diagnosis 81 yo M with 4 day hx of chest pain managed as follows: 1. Chest pain ACS has been ruled out: resolved 2 Asymptomatic Sinus Bradycardia likely 2/2 meds : Avoid AV haleigh blocking agents 3. History of coronary artery disease status post CABG 4. Hypertension with improved control 5. History of dyslipidemia 6. Chronic glaucoma stable . CONDITION Patient Condition: Stable HOME CARE INSTRUCTIONS: Special Diet: Cardiac Diet FOLLOW UP/APPOINTMENTS Follow-up Plan Patient will follow up with primary care doctor within 1-2 weeks to continue to ensure continued resolution of symptoms. Encouraged to avoid AV haleigh blocking drugs like Metoprolol, amlodipine and Nifedipine. . MELY SCHULTZ May 31, 2017 13:09
[2017-06-01] MEDS ORDERED: LOSARTAN 50 MG TAB PO SCH (09:00)
== END 2017-05-31 14:08 | disposition home or self-care (01) ==
LOC: E/R 07:19 → MS3 10:57 → TEL 18:59
PROVIDERS: ADMIT Family Medicine; ATTEND Family Medicine
DX: R07.9 Chest pain, unspecified (principal); R00.1 Bradycardia, unspecified; I10 Essential (primary) hypertension; E78.00 Pure hypercholesterolemia, unspecified; F17.200 Nicotine dependence, unspecified, uncomplicated; H40.9 Unspecified glaucoma; I25.10 Atherosclerotic heart disease of native coronary artery without angina pectoris; Z95.1 Presence of aortocoronary bypass graft; I25.2 Old myocardial infarction; Z79.82 Long term (current) use of aspirin
CPT/HCPCS: 36415; 71010; 80048; 80053; 80061; 82550; 82553; 83036; 83735; 84100; 84443; 84484; 85025; 85610; 85730; 93005; 93306; 96374; 96375; 99217; G0378; J1610; J2270; J2405; J7030